=== PATIENT | female | born 1960 | race Caucasian/White ===

== ENCOUNTER 2016-11-18 09:52 | Emergency (ER) | payer OTHER, MEDICARE ==
[~2016-11-18] VITALS: Ht 157.4 cm; Wt 90.7 kg
[~2016-11-18 09:52] MED LIST: ALBUTEROL4 MG PO; AMOXICILLIN500 M2 PO; DAYPRO600 M1 PO; EFFEXOR XR75 M1 PO; FENOFIBRATE145 M1 PO; FLEXERIL10 MG PO; FLEXERIL5 MG PO; GEODON40 MG PO; GEODON60 MG PO; HYDROCODONE BIT1 T11 PO; LATU20TA PO; MOBIC15 MG PO; MOTRIN800 MG PO; NAPROSYN500 MG PO; NORCO 325 MG-51 TAB PO; PREDNISONE20 M1 PO; ROBAXIN750 MG PO; ROBITUSSIN DM 105 ML PO; TRAZODONE50 MG PO; TUDORZA PRESS400 MCG IH; VICODIN 5/500 505 MG PO; VICODIN 500 MG-1 TAB PO; VICODIN ES 7501 TAB PO; VISTARIL100 MG PO; VOLTAREN50 M1 PO; XANAX0.5 MG PO; ZOLOFT100 MG PO; ZOLPIDEM TART5 MG PO
[2016-11-18] MEDS ORDERED: LATU40TA1 PO (10:16)
[2016-11-18] MEDS ORDERED: ULTRAM50 MG PO (12:55)
== END 2016-11-18 13:28 | disposition home or self-care (01) ==
LOC: ED 09:52
DX: S83.91XA Sprain of unspecified site of right knee, initial encounter (principal); F17.200 Nicotine dependence, unspecified, uncomplicated; Z79.899 Other long term (current) drug therapy; X58.XXXA Exposure to other specified factors, initial encounter; Y93.89 Activity, other specified; Y92.89 Other specified places as the place of occurrence of the external cause; Y99.9 Unspecified external cause status